=== PATIENT | male | born 1955 | race Caucasian/White ===

== ENCOUNTER 2019-02-03 03:55 | Emergency (ER) | payer SELFPAY ==
[~2019-02-03] VITALS: Ht 167.6 cm; Wt 77.1 kg
--- NOTE | 2019-02-03 03:55 | NUR ---
PT CHRISTINE GASPARS. TAKEN TO BED 4
[2019-02-03 04:00] VITALS: BP 143/53
--- NOTE | 2019-02-03 04:00 | NUR ---
63 Y/O M BIBA WITH C/O SOB X 15 MINS PRIOR TO ARRIVAL. PER PT "I WOKE UP AND FELT LIKE I COULDNT BREATHE." BILATERAL LUNG LUEVANO CLEAR THROUGHOUT. O2 SATURATION MAINTAINED AT 96% ON ROOM AIR. RESPIRATIONS EVEN AND UNLABORED. DENIES FEVER AND COUGH. CAP REFILL LESS THAN 3 SECONDS. SKIN NORMAL PER ETHNICITY. BED IN LOWEST POSTION. BEDRAILS X2 UP. HOB ELEVATED FOR COMFORT. ERMD NOTIFIED. WILL CONTINUE TO MONITOR.
--- NOTE | 2019-02-03 04:03 | NUR ---
Dr. Caldwell examining patient.
[2019-02-03 04:20] LABS: BASOPHILS # (AUTO) 0.1 K/uL (0.00-0.22); BASOPHILS % (AUTO) 0.6 % (0.0-2.0); EOSINOPHILS # (AUTO) 0.6 K/uL (0-0.4); EOSINOPHILS % (AUTO) 5.7 % (0.0-4.0); HEMATOCRIT 45.2 % (36-52); HEMOGLOBIN 15.5 g/dL (12.0-18.0); LYMPHOCYTES # (AUTO) 2.3 K/uL (2.0-11.5); LYMPHOCYTES % (AUTO) 20.3 % (20.5-51.1); MEAN CORPUSCULAR HEMOGLOBIN 32 pg (27-31); MEAN CORPUSCULAR HGB CONC 34 g/dL (33-37); MEAN CORPUSCULAR VOLUME 92.5 fL (80-94); MONOCYTES # (AUTO) 1.3 K/uL (0.8-1.0); MONOCYTES % (AUTO) 11.1 % (1.7-9.3); NEUTROPHILS % (AUTO) 62.3 % (42.2-75.2); PLATELET COUNT (AUTO) 196 K/uL (140-450); RED BLOOD CELL COUNT(AUTO) 4.88 MIL/uL (4.20-6.10); RED CELL DISTRIBUTION WIDTH 12.9 % (11.6-13.7); WHITE BLOOD COUNT (AUTO) 11.2 K/uL (4.8-10.8)
--- NOTE | 2019-02-03 04:21 | NUR ---
X-Ray at bedside.
[2019-02-03 04:29] LABS: CARBON DIOXIDE 27.6 mmol/L (21-32); CREATININE 1.1 mg/dL (0.7-1.3); POTASSIUM 3.6 mmol/L (3.5-5.1)
[2019-02-03 04:34] LABS: ALBUMIN 3.7 g/dL (3.4-5.0); TOTAL BILIRUBIN 0.5 mg/dL (0.0-1.0)
[2019-02-03 04:52] VITALS: BP 143/53
--- NOTE | 2019-02-03 04:52 | NUR ---
Patient discharged with v/s stable. Written and verbal after care instructions given and explained. Patient alert, oriented and verbalized understanding of instructions. Ambulatory with steady gait. All questions addressed prior to discharge. ID band removed. Patient advised to follow up with PMD. Rx of Promethazine given. Patient educated on indication of medication including possible reaction and side effects. Opportunity to ask questions provided and answered.
== END 2019-02-03 04:54 | disposition home or self-care (01) ==
LOC: MED 03:55
DX: J40 Bronchitis, not specified as acute or chronic (principal); I10 Essential (primary) hypertension; Z60.2 Problems related to living alone
CPT/HCPCS: 36415; 71045; 80053; 83880; 85025; 99284; Q0092